=== PATIENT | male | born 1945 | race African-American/Black ===

== ENCOUNTER 2021-12-16 15:45 | Observation (INO) | payer MEDICARE, BC ==
[~2021-12-16] VITALS: Ht 185.4 cm; Wt 89.0 kg
[~2021-12-16 15:45] MED LIST: ALLOPURINOL300 MG PO; AMOXICILLIN875 MG PO; ASPIRIN81 MG PO; AUGMENTIN875TAB PO; BRILINTA60 MG; CALCIUM + D600 MG PO; CARVEDILOL6.25 MG PO; CIPRO XR500 MG PO; COLCHICINE0.6 M2 PO; CRESTOR5 M1; DILAUDID 2MG2 MG/TA1 PO; DILAUDID 2MG2 MG/TAB PO; ECHINACEA HERB400 MG PO; EQL B-121000 MCG PO; FERROUS SULF325 M1 PO; FLEXERIL5 M1 PO; FLONASE NASAL50 MCG; FLUZONE SPLT1 M1 IM; GABAPENTIN300 MG PO; GLIMEPIRIDE4 MG PO; IRON27 MG PO; IRON325 MG OR; IRON325 MG PO; LISINOPRIL10 MG PO; LORTAB 7.5-3251 TAB PO; MEDROL DOSEPAK4 MG PO; METAN1 OR; METFORMIN500 M2 PO; METFORMIN500 MG OR; METFORMIN500 MG PO; MOBIC15 MG PO; NAPROSYN500 MG PO; OMEPRAZOLE40 MG PO; ONE DAILY FOR MEN 50 PO; PRANDIN1 MG PO; PRILOSEC40 MG PO; PROBENECID500 MG PO; PSEUDOEPHEDR30 MG PO; PX IRON27 MG PO; TIZANIDINE2 MG PO; TRAMADOL HCL50 MG PO; VITAMIN C500 M6 PO; ZESTRIL PO; ZPAK PO; ZYLOPRIM300 MG PO; [UNRECOGNIZED DRUG - REMARK]
--- NOTE | 2021-12-16 16:06 | NUR ---
PATIENT BROUGHT INTO ED VIA EMS. ALERT AND ORIENTED UPON ARRIVAL. VSS. MD NOTIFIED OF PATIENT STATUS.
[2021-12-16] MEDS ORDERED: LISINOPRIL10 MG PO (16:14)
[2021-12-16] MEDS ORDERED: REPAGLINIDE1 MG PO (16:16)
[2021-12-16] MEDS ORDERED: DONEPEZIL HCL10 M1 PO (16:17)
[2021-12-16] MEDS ORDERED: QUETIAPINE FUMA25 MG PO (16:17)
[2021-12-16] MEDS ORDERED: ASPIRIN 81 LOW81 MG PO (16:18)
[2021-12-16] MEDS ORDERED: B121000 MC1 PO (16:18)
[2021-12-16] MEDS ORDERED: FERRAPLUS 90 PO (16:19)
[2021-12-16] MEDS ORDERED: TRAMADOL HCL50 MG PO (16:20)
[2021-12-16 16:21] LABS: HEMOGLOBIN 12.1 g/dl (14.0-18.0); MEAN CORPUSCULAR HGB 28.5 pG CALC (26.0-32.0); NEUT# 1.8 thou/uL (1.82-7.42); RED BLOOD COUNT 4.24 mill/uL (4.70-6.10); RED CELL DISTRI WIDTH 14.1 % (11.5-15.5)
[2021-12-16] MEDS ORDERED: CARVEDILOL6.25 MG PO (16:21)
[2021-12-16] MEDS ORDERED: BRILINTA60 MG PO (16:21)
[2021-12-16] MEDS ORDERED: MEGESTROL AC20 MG PO (16:21)
[2021-12-16] MEDS ORDERED: CRESTOR5 MG PO (16:22)
[2021-12-16] MEDS ORDERED: GABAPENTIN100 MG PO (16:22)
--- NOTE | 2021-12-16 17:00 | NUR ---
Reassessment of patient completed. No distress noted.
[2021-12-16 17:04] LABS: ALBUMIN 3.6 g/dL (3.2-5.0); ALKALINE PHOSPHATASE 102 u/l (38-126); ANION GAP 11 (6-22 (CALC)); BILIRUBIN, TOTAL 0.5 mg/dL (0.0-1.4); BUN 18 mg/dL (8-23); BUN/CREATININE RATIO 11 (12-20 (CALC)); CARBON DIOXIDE 23 mmol/l (22-30); CHLORIDE 110 mmol/l (95-108); CREATININE 1.6 mg/dL (0.7-1.3); GFR 42 ML/MIN (>=60 (CALC)); GFR FOR AFR.AMER. 51 ML/MIN (>=60 (CALC)); SGOT/AST 23 u/l (19-48); SODIUM 139 mmol/l (137-146); TOTAL PROTEIN 6.9 g/dL (6.3-8.2)
[2021-12-16 17:16] LABS: POTASSIUM 5.1 mmol/l (3.5-5.1)
--- NOTE | 2021-12-16 18:17 | NUR ---
Reassessment of patient completed. No distress noted.
--- NOTE | 2021-12-16 18:55 | NUR ---
Reassessment of patient completed. No distress noted.
--- NOTE | 2021-12-16 18:59 | NUR ---
REPORT CALLED TO [facility] ON MED SURGE AND VERBALIZED UNDERSTANDING. PATIENT TRANSPORTED TO ROOM 279
--- NOTE | 2021-12-16 19:01 | NUR ---
PT TO BE TRANSPORTED ONCE BACK FROM [facility]
[2021-12-16 19:19] VITALS: BP 140/80
[2021-12-16 19:59] LABS: URINE BILIRUBIN - DIPSTICK NEGATIVE (NEGATIVE); URINE BLOOD DIPSTICK SMALL (NEGATIVE); URINE COLOR YELLOW; URINE GLUCOSE - DIPSTICK NEGATIVE (NEGATIVE); URINE KETONE NEGATIVE (NEGATIVE); URINE LEUK ESTERASE NEGATIVE (NEGATIVE); URINE PH 6.5 (4.5-8.0); URINE PROTEIN - DIPSTICK NEGATIVE (NEG-TRACE); URINE SPECIFIC GRAVITY 1.015; URINE UROBILINOGEN - DIPSTICK 0.2 E.U./dL (0.2)
[2021-12-16 20:01] LABS: URINE NITRITE - DIPSTICK NEGATIVE (Negative)
[2021-12-16 20:07] LABS: URINE SQUAMOUS EPITHELIAL CELL FEW EPI/hpf (0-FEW); URINE WBC 0-2 WBC/hpf (0-5)
--- NOTE | 2021-12-16 20:30 | NUR ---
PATIENT ADMITTED FROM ER VIA WHEELCHAIR WITH ER STAFF IN ATTENDANCE. PATIENT ABLE TO TRANFER TO THE BED AND THEN WAS ABLE TO AMBULATE TO THE BR TO VOID YELLOW URINE. URINE SPEC OBTAIN AND THEN PATIENT WAS ABLE TO AMBULATE BACK TO THE BED WITH SB ASSIST. PATIENT IS AWAKE ALERT AND ORIENTED TO PERSON ONLY. PATIENT WITH HX OF DEMENTIA AND VERY FORGETFUL PER PATIENT. PATIENT IS NOT ABLE TO TELL [employer] WHAT BROUGHT HIM TO THE HOSPITAL OTHER THAN HIS CALL FOR HIM. STATES THAT HIS TAKES CARE OF EVERYTHING FOR HIM BECAUSE HE CAN'T REMEMBER ANYTHING. PATIENT REPEATS HIMSELF FREQUENTLY. PATIENT KNOW THAT HE IS IN THE HOSPITAL BUT DOESN'T WHICH ONE. DOESN'T KNOW THE MONTH OR YEAR. ATTEMPT TO REORIENT PATIENT WITH LITTLE SUCCESS. VS TAKEN AND RECORDED. TELE MONITOR IN PLACE READING SA WITH PAC-59. PATIENT WITH NO COMPLAINTS OF CHEST PAIN. NO SOB NOTED. O2 SATS 100% AT THIS TIME ON ROOM AIR. LUNGS ARE CLEAR. ABD IS SOFT WITH BS+. UNABLE TO TELL WHEN HE LAST HAD BM. ATTEMPTED TO ORIENT PATIENT TO ROOM AND SURROUNDINGS. INSTRUCTED ON USE OF NURSE CALL LIGHT SYSTEM AND TV REMOTE. SAFETY PRECAUTIONS REINFORCED. BED ALARM IN PLACE FOR PATIENT SAFETY. CALL LIGHT IN REACH. WILL CONT TO MONITOR.
--- NOTE | 2021-12-16 21:45 | NUR ---
PATIENT RESTING IN BED AT THIS TIME-NO COMPLAINTS. ACCU-CHECK RE-CHECK IS 131. BED ALARM IN PLACE. IVF NS PATENT AND INFUSING VIA LAC SITE AT 75CC/HR. SITE REMAINS HEALTHY AT THIS TIME. BED ALARM IN PLACE FOR PATIENT SAFETY SAFETY PRECAUTIONS REINFORCED. CALL LIGHT IN REACH. WILL CONT TO MONITOR.
--- NOTE | 2021-12-17 00:28 | NUR ---
PATIENT RESTING IN BED AT THIS TIME WITH EYES CLOSED AND RESPS ARE EVEN AND UNLABORED. IVF PATENT AND INFUSING VIA LAC SITE AT 75CC/HR. TELE MONITOR IN PLACE. BED ALARM IN PLACE FOR PATIENT SAFETY. CALL LIGHT IN REACHL. WILL CONT TO MONITOR.
[2021-12-17 00:45] VITALS: BP 114/69
--- NOTE | 2021-12-17 04:12 | NUR ---
PATIENT RESTING IN BED AT THIS TIME WITH EYES CLOSED AND RESPS ARE EVEN AND UNLABORED. IVF PATENT AND INFUSING VIA NS AT 75CC/HR. TELE MONITOR IN PLACE. BED ALARM IN PLACE FOR PATIENT SAFETY. CALL LIGHT IN REACH. WILL CONT TO MONITOR.
--- NOTE | 2021-12-17 04:48 | NUR ---
BED ALARM IS GOING OFF AND STAFF RESPONDED TO THE ROOM TO FIND THE PATIENT SITTING ON THE SIDE OF THE BED WITH IV DISLODGED FROM LAC SITE AND TELE OFF. PATIENT IS CONFUSED BUT PLEASANT STATES THAT HE HAS TO GO TO THE BR. STATES THAT HE FORGOT THAT HE WAS IN THE HOSPITAL. ATTEMPT TO REORIENT PATIENT WITH LITTLE SUCCESS. PATIENT CONT TO BE VERY FORGETFUL. PATIENT MIN ASSIST TO THE BR TO VOID AND THEN BACK TO THE BED. TELE MONITOR REAPPLIED. #22 STARTED TO LEFT HAND WITH GOOD BLOOD RETURN. IVF NS PATENT AND INFUSING AT 75CC/HR. BED ALARM REACTIVATED. SAFETY PRFECAUTIONS REINFORCED. CALL LIGHT IN REACH. WILL CONT TO MONITOR.
[2021-12-17 05:28] LABS: HEMATOCRIT 36.6 % (39.0-50.0); HEMOGLOBIN 11.2 g/dl (14.0-18.0); MEAN CELL VOLUME 92.2 fL CALC (80.0-100.0); MEAN CORPUSCULAR HGB 28.2 pG CALC (26.0-32.0); MEAN CORPUSCULAR HGB CONC 30.6 g/dL CAL (32.0-36.0); NEUT# 2.27 thou/uL (1.82-7.42); RED BLOOD COUNT 3.97 mill/uL (4.70-6.10); RED CELL DISTRI WIDTH 14.2 % (11.5-15.5)
[2021-12-17 05:31] VITALS: BP 125/74
[2021-12-17 05:48] LABS: ALBUMIN 3.1 g/dL (3.2-5.0); BILIRUBIN, TOTAL 0.5 mg/dL (0.0-1.4); CREATININE 1.4 mg/dL (0.7-1.3); POTASSIUM 4.7 mmol/l (3.5-5.1); TOTAL PROTEIN 5.9 g/dL (6.3-8.2)
[2021-12-17 07:44] VITALS: BP 139/80
--- NOTE | 2021-12-17 08:00 | NUR ---
ASSESSMENT DONE. PATIENT IS ALERT AND ORINET X1 BUT CONFUSED. PATIENT DENIES PAIN . TELE IN PLACE. RESPS EVEN AND UNLABORED. SETUP PATIENT FOR BREAKFAST. PATIENT DENIES ANY OTHER NEEDS. BED ALARM IN PLACE AND CALL LIGHT IN REACH.
--- NOTE | 2021-12-17 11:46 | NUR ---
PATIENT IS CONFUSED. PATIENT PULL HIS IV AND PATIENT STATED HE IS TIRED OF WAITING. IN ROOM. STATED WAITING ON DC PAPERS. CALL LIGHT IN REACH.
--- NOTE | 2021-12-17 13:15 | NUR ---
Discharge instructions given. Patient verbalizes understanding of same. Discharged in stable condition via Wheelchair to Home with spouse. All belongings sent with pt.
--- NOTE | 2021-12-17 13:17 | NUR ---
PATIENT IN THE ROOM READY TO GO AND HE IS ANXIOUS. IN ROOM. PATIENT PULL HIS IV AND IS CONFUSED. PATIENT STATED HE WANTS TO GO HOME. CALL LIGHT IN REACH.
== END 2021-12-17 13:15 | disposition home or self-care (01) ==
LOC: ED 15:45 → ED-I 17:15 → ED 17:27 → MS2 17:28
PROVIDERS: Family Medicine; ADMIT Internal Medicine; ATTEND Internal Medicine
DX: R55 Syncope and collapse (principal); N17.9 Acute kidney failure, unspecified; E11.22 Type 2 diabetes mellitus with diabetic chronic kidney disease; I12.9 Hypertensive chronic kidney disease with stage 1 through stage 4 chronic kidney disease, or unspecified chronic kidney disease; N18.9 Chronic kidney disease, unspecified; E11.40 Type 2 diabetes mellitus with diabetic neuropathy, unspecified; F03.90 Unspecified dementia, unspecified severity, without behavioral disturbance, psychotic disturbance, mood disturbance, and anxiety; I25.10 Atherosclerotic heart disease of native coronary artery without angina pectoris; E78.5 Hyperlipidemia, unspecified; Z95.5 Presence of coronary angioplasty implant and graft; Z20.822 Contact with and (suspected) exposure to COVID-19
CPT/HCPCS: J1650

== ENCOUNTER 2023-07-17 09:46 | Inpatient (IN) | payer MEDICARE, BC ==
[~2023-07-17] VITALS: Ht 185.4 cm; Wt 100.9 kg
[2023-07-17] VITALS (42 sets, daily range): BP systolic 90–159; BP diastolic 57–114
[~2023-07-17 09:46] MED LIST changes: +ASPIRIN 81 LOW81 MG PO; +B121000 MC1 PO; +BRILINTA60 MG PO; +CRESTOR5 MG PO; +DONEPEZIL HCL10 M1 PO; +FERRAPLUS 90 PO; +GABAPENTIN100 MG PO; +MEGESTROL AC20 MG PO; +QUETIAPINE FUMA25 MG PO; +REPAGLINIDE1 MG PO
[2023-07-17] MEDS ORDERED: PROTONIX40 M2 PO (10:19)
[2023-07-17] MEDS ORDERED: ISOSORBIDE MONO60 MG PO (10:20)
[2023-07-17 10:48] LABS: ALKALINE PHOSPHATASE 91 u/l (38-126); ANION GAP 14 (6-22 (CALC)); BUN 28 mg/dL (8-23); CARBON DIOXIDE 21 mmol/l (22-30); CHLORIDE 109 mmol/l (95-108); LIPASE 176 u/l (23-300); POTASSIUM 4.7 mmol/l (3.5-5.1); SODIUM 140 mmol/l (137-146)
[2023-07-17 10:50] LABS: BASO% 0.1 % (0-3); BILIRUBIN, TOTAL 0.6 mg/dL (0.2-1.3); BUN/CREATININE RATIO 12 (12-20 (CALC)); CREATININE 2.4 mg/dL (0.7-1.3); EOS% 0.1 % (0-8); GFR FOR AFR.AMER. 32 ML/MIN (>=60 (CALC)); GFR OTHER RACES 26 ML/MIN (>=60 (CALC)); HEMATOCRIT 36.5 % (39.0-50.0); HEMOGLOBIN 10.9 g/dl (14.0-18.0); IMMATURE GRANULOCYTES 0.1 % (0.0-5.0); LYMPH% 9.3 % (15-41); MEAN CELL VOLUME 92.6 fL CALC (80.0-100.0); MEAN CORPUSCULAR HGB 27.7 pG CALC (26.0-32.0); MEAN CORPUSCULAR HGB CONC 29.9 g/dL CAL (32.0-36.0); MONO% 9.9 % (2-13); NEUT# 5.85 thou/uL (1.82-7.42); NEUT% 80.5 % (42-76); RED BLOOD COUNT 3.94 mill/uL (4.70-6.10); RED CELL DISTRI WIDTH 14.4 % (11.5-15.5); SGOT/AST 40 u/l (19-48); TOTAL PROTEIN 7.5 g/dL (6.3-8.2)
[2023-07-17 14:51] LABS: ACT PARTIAL THROMBO TIME 26.6 SECONDS (20.0-32.5); PROTHROMBIN TIME 10.1 SECONDS (9.0-12.5)
[2023-07-17 20:37] LABS: URINE BILIRUBIN - DIPSTICK Negative (NEGATIVE); URINE BLOOD DIPSTICK Small (NEGATIVE); URINE GLUCOSE - DIPSTICK Negative (NEGATIVE); URINE KETONE Negative (NEGATIVE); URINE LEUK ESTERASE Negative (NEGATIVE); URINE NITRITE - DIPSTICK Negative (Negative); URINE PH 5.5 (4.5-8.0); URINE PROTEIN - DIPSTICK 30 mg/dL (NEG-TRACE); URINE SPECIFIC GRAVITY >=1.030; URINE UROBILINOGEN - DIPSTICK 0.2 E.U./dL (0.2)
[2023-07-17 20:47] LABS: URINE COLOR Yellow
[2023-07-17 20:56] LABS: URINE WBC 0-2 WBC/hpf (0-5)
[2023-07-18] VITALS (24 sets, daily range): BP systolic 105–163; BP diastolic 81–116
[2023-07-18 01:41] LABS: CREATININE 2.2 mg/dL (0.7-1.3); POTASSIUM 4.9 mmol/l (3.5-5.1)
[2023-07-18 06:09] LABS: BASO% 0.1 % (0-3); HEMATOCRIT 34.1 % (39.0-50.0); HEMOGLOBIN 10.4 g/dl (14.0-18.0); IMMATURE GRANULOCYTES 0.5 % (0.0-5.0); LYMPH% 7.6 % (15-41); MEAN CELL VOLUME 93.4 fL CALC (80.0-100.0); MEAN CORPUSCULAR HGB 28.5 pG CALC (26.0-32.0); MEAN CORPUSCULAR HGB CONC 30.5 g/dL CAL (32.0-36.0); MONO% 10.1 % (2-13); NEUT# 10.26 thou/uL (1.82-7.42); NEUT% 81.7 % (42-76); RED BLOOD COUNT 3.65 mill/uL (4.70-6.10); RED CELL DISTRI WIDTH 14.4 % (11.5-15.5)
[2023-07-18 07:02] LABS: ALBUMIN 3.7 g/dL (3.2-5.0); BILIRUBIN, TOTAL 0.5 mg/dL (0.2-1.3); CHOLESTEROL HDL RATIO 2.4 (<4.4 (CALC)); CREATININE 2.3 mg/dL (0.7-1.3); MAGNESIUM 2.8 mg/dL (1.6-2.3); POTASSIUM 4.5 mmol/l (3.5-5.1); TOTAL PROTEIN 6.8 g/dL (6.3-8.2)
[2023-07-18 07:19] LABS: C-REACTIVE PROTEIN 22.8 mg/dL (0-0.9)
[2023-07-19] VITALS (20 sets, daily range): BP systolic 124–166; BP diastolic 86–112
[2023-07-19 10:00] LABS: HEMATOCRIT 31.4 % (39.0-50.0); HEMOGLOBIN 9.8 g/dl (14.0-18.0); MEAN CORPUSCULAR HGB 28.4 pG CALC (26.0-32.0); MEAN CORPUSCULAR HGB CONC 31.2 g/dL CAL (32.0-36.0); RED BLOOD COUNT 3.45 mill/uL (4.70-6.10); RED CELL DISTRI WIDTH 14.2 % (11.5-15.5)
[2023-07-19 10:19] LABS: CREATININE 2.1 mg/dL (0.7-1.3)
[2023-07-19 10:32] LABS: POTASSIUM 5.4 mmol/l (3.5-5.1)
[2023-07-19 19:37] LABS: CREATININE 1.9 mg/dL (0.7-1.3); POTASSIUM 4.9 mmol/l (3.5-5.1)
[2023-07-19] MEDS ORDERED: LOKELMA10 GM PO (19:47)
[2023-07-19] MEDS ORDERED: OMNICEF300 MG PO (19:47)
[2023-07-19] MEDS ORDERED: AZITHROMYCIN500 MG PO (19:47)
[2023-07-19] MEDS ORDERED: ELIQUIS STARTER5 MG PO (20:07)
== END 2023-07-19 21:30 | disposition home health service (06) | DRG 871 ==
LOC: ED 09:46 → ED-I 12:50 → ICU 16:15 → ED 16:15 → ICU 07-19 21:30
PROVIDERS: Family Medicine; Student in an Organized Health Care Education/Training Program; ADMIT Student in an Organized Health Care Education/Training Program; ATTEND Student in an Organized Health Care Education/Training Program
PROC: XW033E5 Introduction of Remdesivir Anti-infective into Peripheral Vein, Percutaneous Approach, New Technology Group 5 (ICD-10-PCS; principal; 2023-07-17)
PROC: 02HV33Z Insertion of Infusion Device into Superior Vena Cava, Percutaneous Approach (ICD-10-PCS; 2023-07-18)
PROC: B518ZZA Fluoroscopy of Superior Vena Cava, Guidance (ICD-10-PCS; 2023-07-18)
DX: A41.89 Other specified sepsis (principal); I26.99 Other pulmonary embolism without acute cor pulmonale; U07.1 COVID-19; J12.82 Pneumonia due to coronavirus disease 2019; F03.911 Unspecified dementia, unspecified severity, with agitation; N17.9 Acute kidney failure, unspecified; R09.02 Hypoxemia; I12.9 Hypertensive chronic kidney disease with stage 1 through stage 4 chronic kidney disease, or unspecified chronic kidney disease; E11.22 Type 2 diabetes mellitus with diabetic chronic kidney disease; N18.9 Chronic kidney disease, unspecified; E11.40 Type 2 diabetes mellitus with diabetic neuropathy, unspecified; E87.5 Hyperkalemia; I25.10 Atherosclerotic heart disease of native coronary artery without angina pectoris; K44.9 Diaphragmatic hernia without obstruction or gangrene; E78.5 Hyperlipidemia, unspecified; Z95.5 Presence of coronary angioplasty implant and graft; Z91.81 History of falling
CPT/HCPCS: J1644; Q9967

== ENCOUNTER 2023-07-23 15:27 | Emergency (ER) | payer MEDICARE, BC ==
[~2023-07-23] VITALS: Ht 185.4 cm; Wt 101.6 kg
[2023-07-23] VITALS (15 sets, daily range): BP systolic 101–135; BP diastolic 65–101
[~2023-07-23 15:27] MED LIST changes: +AZITHROMYCIN500 MG PO; +ELIQUIS STARTER5 MG PO; +ISOSORBIDE MONO60 MG PO; +LOKELMA10 GM PO; +OMNICEF300 MG PO; +PROTONIX40 M2 PO
[2023-07-23 16:54] LABS: BILIRUBIN, TOTAL 0.5 mg/dL (0.2-1.3); POTASSIUM 4.2 mmol/l (3.5-5.1); TOTAL PROTEIN 5.7 g/dL (6.3-8.2)
[2023-07-23 16:55] LABS: ALBUMIN 2.9 g/dL (3.2-5.0)
[2023-07-23 17:00] LABS: BASO% 0.1 % (0-3); EOS% 1.9 % (0-8); HEMATOCRIT 31.4 % (39.0-50.0); HEMOGLOBIN 9.5 g/dl (14.0-18.0); IMMATURE GRANULOCYTES 2.7 % (0.0-5.0); MEAN CELL VOLUME 92.1 fL CALC (80.0-100.0); MEAN CORPUSCULAR HGB 27.9 pG CALC (26.0-32.0); MEAN CORPUSCULAR HGB CONC 30.3 g/dL CAL (32.0-36.0); MONO% 9.9 % (2-13); NEUT# 5.8 thou/uL (1.82-7.42); NEUT% 75.4 % (42-76); RED BLOOD COUNT 3.41 mill/uL (4.70-6.10); RED CELL DISTRI WIDTH 14.3 % (11.5-15.5)
== END 2023-07-23 18:42 | disposition home or self-care (01) ==
LOC: ED 15:27
PROVIDERS: Family Medicine
DX: E86.0 Dehydration (principal); I10 Essential (primary) hypertension; E11.9 Type 2 diabetes mellitus without complications; D64.9 Anemia, unspecified; F03.90 Unspecified dementia, unspecified severity, without behavioral disturbance, psychotic disturbance, mood disturbance, and anxiety